=== PATIENT | male | born 1980 | race Caucasian/White ===

== ENCOUNTER 2016-07-21 20:46 | Emergency (ER) | payer OTHER ==
[2016-07-21 21:11] VITALS: BP 139/98
[2016-07-21] MEDS ORDERED: DOXYcycline CAP(*) 100 MG PO ONE (21:45)
--- NOTE | 2016-07-21 22:03 | UC ---
General HPI - HPI Summary HPI Summary: TICK WAS EMBEDDED IN RIGHT SHOULDER, TRIED TO TAKE TICK OUT, MAY BE SOME TICK FRAGMENTS STILL IN WOUND. NO FEVER. N ORASH. NO WEAKNESS. - History of Current Complaint Chief Complaint: JONATANkin Stated Complaint: TICK Hx Obtained From: Patient Onset Severity: Mild Current Severity: None Pain Intensity: 0 Associated Signs & Symptoms: Positive: Other - TICK BITE - Allergy/Home Medications Allergies/Adverse Reactions: Allergies Allergy/AdvReac Type Severity Reaction Status Date / Time Latex Allergy Intermediate Rash Verified 07/21/16 21:12 Penicillins Allergy Swelling Verified 07/21/16 21:12 PMH/Surg Hx/FS Hx/Imm Hx Previously Healthy: Yes Endocrine History Of: Denies: Diabetes, Thyroid Disease Cardiovascular History Of: Reports: Hypertension Denies: Cardiac Disorders Respiratory History Of: Reports: Asthma Denies: COPD GI/ History Of: Denies: Ulcer - Surgical History Surgical History: Yes Surgery Procedure, Year, and Place: 2009 Right shoulder - Family History Known Family History: Positive: Hypertension - Social History Occupation: Employed Full-time Lives: With Family Alcohol Use: Rare Substance Use Type: None Smoking Status (MU): Never Smoked Tobacco Type: Smokeless Tobacco Amount Used/How Often: 1 tin every 2-3 days Length of Time of Smoking/Using Tobacco: 1991 - Immunization History Most Recent Influenza Vaccination: denies Review of Systems Constitutional: Negative Skin: Rash - TICK BITE RIGHT SHOULDER ENT: Negative Respiratory: Negative Cardiovascular: Negative Gastrointestinal: Negative Genitourinary: Negative Motor: Negative Neurovascular: Negative Musculoskeletal: Negative Neurological: Negative Psychological: Negative All Other Systems Reviewed And Are Negative: Yes Physical Exam Triage Information Reviewed: Yes Appearance: Well-Appearing, No Pain Distress, Well-Nourished Vital Signs: Initial Vital Signs Temp 98.6 F 07/21/16 21:06 Resp 16 07/21/16 21:06 BP 139/98 07/21/16 21:06 Pulse Ox 100 07/21/16 21:06 Vital Signs Reviewed: Yes Eye Exam: Normal Eyes: Positive: Conjunctiva Clear ENT Exam: Normal Dental Exam: Normal Neck exam: Normal Neck: Positive: Supple, Nontender, No Lymphadenopathy Respiratory Exam: Normal Respiratory: Positive: Chest non-tender, Lungs clear, Normal breath sounds Cardiovascular Exam: Normal Cardiovascular: Positive: RRR, No Murmur Abdominal Exam: Normal Abdomen Description: Positive: Nontender, No Organomegaly Musculoskeletal Exam: Normal Neurological Exam: Normal Psychological Exam: Normal Psychological: Positive: Normal Response To Family Skin: Positive: Other - TICK BITE RIGHT SHOULDER Course/Dx - Differential Dx - Multi-Symptom Differential Diagnoses: Other - TICK BITE Provider Diagnoses: TICK BITE RIGHT SHOULDER. TICK BITE PROPHYLAXIS Discharge - Discharge Plan Condition: Stable Disposition: HOME Patient Education Materials: Tick Bite (ED) Referrals: Adelia Rodrigues PA [Primary Care Provider] - Images Front/Back of Body, Lg ([place]): 1 - TICK BITE HERE
== END 2016-07-21 21:55 | disposition home or self-care (01) ==
LOC: UCEAST 20:46
DX: S40.261A Insect bite (nonvenomous) of right shoulder, initial encounter (principal); W57.XXXA Bitten or stung by nonvenomous insect and other nonvenomous arthropods, initial encounter; I10 Essential (primary) hypertension; Z88.0 Allergy status to penicillin
CPT/HCPCS: 99212; A9270-GY; G0463

== ENCOUNTER 2017-04-01 10:16 | Emergency (ER) | payer OTHER ==
[2017-04-01] MEDS ORDERED: Ibuprofen TAB* 600 MG PO ONE (11:58)
--- NOTE | 2017-04-01 12:05 | UC ---
FLU HPI - HPI Summary HPI Summary: 3 DAYS OF SUBJECTIVE FEVER, CHILLS, LUNA, COUGH, CONGESTION, MYALGIAS, FATIGUE. NO FLU SHOT THIS SEASON. - History of Current Complaint Chief Complaint: UCRespiratory Stated Complaint: FLU SYMPTOMS Time Seen by Provider: 04/01/17 11:43 Hx Obtained From: Patient Onset/Duration: Gradual Onset, Lasting Days, Still Present Severity Currently: Moderate Severity Initially: Moderate Pain Intensity: 9 Pain Scale Used: 0-10 Numeric Associated Signs & Symptoms: Positive: Fever, Myalgia, Cough, Sore Throat, Nasal Congestion, Headache - Allergy/Home Medications Allergies/Adverse Reactions: Allergies Allergy/AdvReac Type Severity Reaction Status Date / Time Latex Allergy Intermediate Rash Verified 04/01/17 10:44 Penicillins Allergy Swelling Verified 04/01/17 10:44 PMH/Surg Hx/FS Hx/Imm Hx Cardiovascular History: Hypertension Respiratory History: Asthma - Surgical History Surgical History: Yes Surgery Procedure, Year, and Place: 2009 Right shoulder - Family History Known Family History: Positive: Hypertension - Social History Alcohol Use: Rare Substance Use Type: None Smoking Status (MU): Never Smoked Tobacco Type: Smokeless Tobacco Amount Used/How Often: 1 tin every 2-3 days Length of Time of Smoking/Using Tobacco: 1991 - Immunization History Most Recent Influenza Vaccination: denies Review of Systems Constitutional: Fever, Chills, Fatigue ENT: Sore Throat, Ear Ache, Nasal Discharge Respiratory: Cough Cardiovascular: Negative Gastrointestinal: Nausea Musculoskeletal: Myalgia Neurological: Headache All Other Systems Reviewed And Are Negative: Yes Physical Exam Triage Information Reviewed: Yes Appearance: No Pain Distress, Well-Nourished, Ill-Appearing - MODERATE Vital Signs: Initial Vital Signs Temp 99.8 F 04/01/17 10:44 Pulse 112 04/01/17 10:44 Resp 20 04/01/17 10:44 Pulse Ox 98 04/01/17 10:44 Vital Signs Reviewed: Yes Eyes: Positive: Conjunctiva Clear ENT: Positive: Hearing grossly normal, Pharynx normal, TMs normal Neck: Positive: Supple, Nontender, No Lymphadenopathy Respiratory Exam: Normal Cardiovascular: Positive: Tachycardia Abdomen Description: Positive: Soft Musculoskeletal: Positive: No Edema Neurological: Positive: Alert Psychological: Positive: Age Appropriate Behavior Skin: Negative: rashes Diagnostics - Laboratory Diagnostic Studies Completed/Ordered: INFLUENZA SWAB NEGATIVE Flu Course/Dx - Differential Dx/Diagnosis Provider Diagnoses: VIRAL SYNDROME Discharge - Discharge Plan Condition: Stable Disposition: HOME Patient Education Materials: Viral Syndrome (ED) Forms: *Work Release Referrals: Adelia Rodrigues PA [Primary Care Provider] - If Needed Additional Instructions: FLU TEST NEGATIVE. YOUR SYMPTOMS ARE LIKELY VIRALLY MEDIATED AND SHOULD RESOLVE ON THEIR OWN WITH TIME. REST, HYDRATE, OTC MEDS NEEDED. SEEK FOLLOW-UP IF YOU ARE NOT IMPROVING OVER THE NEXT 1-2 WEEKS. VIRAL SYNDROME: The physician has diagnosed a viral infection. Viruses not only cause "colds," but can cause many different symptoms including generalized aching, fever, headache, cough, diarrhea, nausea, vomiting, and fatigue. The treatment, for the most part, is simply relief of symptoms. This means that antibiotics are usually not given. Rest, fluids, pain medications and, occasionally, medication for the specific symptoms that are most bothersome will be prescribed. Contact the physician if you develop any new or unusual symptoms such as severe headache, stiff neck, high fever, chest pain, productive cough, or shortness of breath. You should be rechecked if you don't see marked improvement within seven to 10 days.
== END 2017-04-01 12:45 | disposition home or self-care (01) ==
LOC: UCEAST 10:16
DX: B34.9 Viral infection, unspecified (principal); I10 Essential (primary) hypertension; Z88.0 Allergy status to penicillin; Z91.040 Latex allergy status; F17.290 Nicotine dependence, other tobacco product, uncomplicated
CPT/HCPCS: 87502; 99211; A9270-GY; G0463

== ENCOUNTER 2017-05-10 13:38 | Emergency (ER) | payer OTHER ==
[2017-05-10 15:49] VITALS: BP 135/92
--- NOTE | 2017-05-10 16:22 | RAD ---
INDICATION: RIGHT wrist pain and swelling following lifting furniture; felt pop. Pain in posterior ulnar region. COMPARISON: None. TECHNIQUE: AP, lateral, and oblique views RIGHT wrist. REPORT: Normal articular alignment. Mild subchondral cystic change at the proximal pole of the lunate favoring degeneration of the overlying hyaline articular cartilage. No cortical disruption or suspicious trabecular irregularity to suggest fracture. Soft tissue swelling most prominent over the volar aspect. IMPRESSION: Negative for fracture. Nonspecific soft tissue swelling. 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
--- NOTE | 2017-05-10 16:44 | UC ---
Hand/Wrist HPI - HPI Summary HPI Summary: heard a pop in his right wrist while moving furniture yesterday - History Of Current Complaint Chief Complaint: UCUpperExtremity Stated Complaint: WRIST INJURY Time Seen by Provider: 05/10/17 16:37 Hx Obtained From: Patient ?: No Onset/Duration: Sudden Onset, Lasting Days - 1 Severity Initially: Moderate Severity Currently: Moderate Pain Intensity: 6 Character Of Pain: Dull, Aching Aggravating Factor(s): Movement Alleviating Factor(s): Nothing Associated Signs And Symptoms: Positive: Negative Related History: Dominant Hand Right - Allergies/Home Medications Allergies/Adverse Reactions: Allergies Allergy/AdvReac Type Severity Reaction Status Date / Time MS Latex [Latex] Allergy Intermediate Rash Verified 05/10/17 15:42 MS Penicillins [Penicillins] Allergy Swelling Verified 05/10/17 15:42 PMH/Surg Hx/FS Hx/Imm Hx Previously Healthy: No Respiratory History: Asthma - Surgical History Surgical History: Yes Surgery Procedure, Year, and Place: 2009 Right shoulder - Family History Known Family History: Positive: Hypertension - Social History Occupation: Employed Full-time Lives: With Family Alcohol Use: Rare Substance Use Type: None Smoking Status (MU): Never Smoked Tobacco Type: Smokeless Tobacco Amount Used/How Often: 1 tin every 2-3 days Length of Time of Smoking/Using Tobacco: 1991 - Immunization History Most Recent Influenza Vaccination: denies Review of Systems Constitutional: Negative Skin: Negative Eyes: Negative ENT: Negative Respiratory: Negative Cardiovascular: Negative Gastrointestinal: Negative Genitourinary: Negative Motor: Negative Neurovascular: Negative Musculoskeletal: Arthralgia - radial side of right wrist Neurological: Negative Psychological: Negative Is Patient Immunocompromised?: No All Other Systems Reviewed And Are Negative: Yes Physical Exam Triage Information Reviewed: Yes Appearance: Well-Appearing, No Pain Distress, Well-Nourished Vital Signs: Initial Vital Signs Temp 97.8 F 05/10/17 15:43 Pulse 95 05/10/17 15:43 Resp 20 05/10/17 15:43 BP 135/92 05/10/17 15:43 Pulse Ox 96 05/10/17 15:43 Vital Signs Reviewed: Yes Eye Exam: Normal Eyes: Positive: Conjunctiva Clear ENT Exam: Normal ENT: Positive: Normal ENT inspection, Hearing grossly normal. Negative: Trismus , Muffled voice, Hoarse voice, Dental tenderness Dental Exam: Normal Neck exam: Normal Neck: Positive: Supple, Nontender Respiratory Exam: Normal Respiratory: Positive: Chest non-tender, No respiratory distress, No accessory muscle use Cardiovascular Exam: Normal Cardiovascular: Positive: RRR, Pulses Normal, Brisk Capillary Refill Musculoskeletal Exam: Normal Musculoskeletal: Positive: Strength Intact, ROM Intact, No Edema Neurological Exam: Normal Neurological: Positive: Alert, Muscle Tone Normal Psychological Exam: Normal Psychological: Positive: Normal Response To Family, Age Appropriate Behavior Skin Exam: Normal Diagnostics - Radiology No standard instances Xray Interpretation: Positive (See Comments) - degenerative changes near lunate Radiology Interpretation Completed By: Radiologist Hand/Wrist Course/Dx - Course Course Of Treatment: nsaids, splint rest follow with ortho - Differential Dx/Diagnosis Provider Diagnoses: Tendonitis right wrist Discharge - Discharge Plan Condition: Stable Disposition: HOME Prescriptions: Ibuprofen TAB* [Motrin TAB* 600 MG] 600 mg PO Q6H PRN #40 tab PRN Reason: pain Patient Education Materials: Tendinitis (ED) Referrals: Jonny Ramos MD [Medical Doctor] - 5 Days
== END 2017-05-10 17:33 | disposition home or self-care (01) ==
LOC: UCEAST 13:38
DX: M65.841 Other synovitis and tenosynovitis, right hand (principal); M25.531 Pain in right wrist; J45.909 Unspecified asthma, uncomplicated; Z88.0 Allergy status to penicillin; Z91.040 Latex allergy status; F17.220 Nicotine dependence, chewing tobacco, uncomplicated
CPT/HCPCS: 99213; G0463